=== PATIENT | female | born 1975 | race Hispanic/Latino ===

== ENCOUNTER 2023-12-10 12:18 | Emergency (ER) | payer SELFPAY ==
[2023-12-10 12:24] VITALS: BP 114/66
--- NOTE | 2023-12-10 14:32 | ED.GENMED ---
History of Present Illness
<Karlos Ceballos Jr., PA-C - Last Filed: 12/10/23 15:11>
General
Chief Complaint: DVT/Possible Blood Clot
Source: patient
Exam Limitations: none
Time Seen by Provider: 12/10/23 12:37
Nursing documentation reviewed up to this point in time: agreed with
Travel History
Have you had any contact with someone who has COVID-19?: No
Do you have any symptoms of coronavirus? Fever > 100 degrees, chills, cough, shortness of breath, sore throat, loss of taste or smell, muscle aches, or headache?: No
History of Present Illness
History of Present Illness:
48-year-old female with past medical history of psoriasis and anxiety presenting to the emergency department today with concerns of 1 week of worsening right lower extremity swelling from the right knee and distal. Denies similar symptoms in the
past. Denies any chest pain shortness of breath or history of blood clots. Denies any recent trauma surgery immobilization.
Past History
<Karlos Ceballos Jr., PA-C - Last Filed: 12/10/23 15:11>
Past History
ED Past Medical History: Psychiatric (anxiety) and Other (psoriasis)
ED Past Surgical History: None
Social History
Tobacco: Smoker
Living: with family
Family History
Family History: CAD
Review of Systems
<Karlos Ceballos Jr., PA-C - Last Filed: 12/10/23 15:11>
Review of Systems
Allergies reviewed?: Yes
All Other Systems: ROS reviewed and negative except as documented in HPI and ROS
Phy Exam
<Karlos Ceballos Jr., PA-C - Last Filed: 12/10/23 15:11>
Physical Exam
Physical Exam:
GENERAL: Alert , in no apparent distress
EYE: pupils equal and reactive
NECK: Supple, no significant adenopathy.
ENT: o/p clr, mmm.
CARDIAC: Regular rate and rhythm .
LUNGS: Clear breath sounds bilaterally, no acute respiratory distress, no wheezes/rales/rhonchi
ABDOMEN: Soft, without focal tenderness, no r/g, no cvat
NEUROLOGICAL: Alert and oriented, no focal neuro deficits
SKIN: Warm and dry, skin intact.
MUSCULOSKELETAL: +2 edema to the right lower extremity from the knee distal no significant swelling to the left leg normal distal pulses, well perfused.
PSYCH: Normal and appropriate interaction.
Course
<Karlos Ceballos Jr., PA-C - Last Filed: 12/10/23 15:11>
Orders/Labs/Results
Orders:
Orders
12/10/23 12:27
Periph Venous Lwr Ext Rt US [US Periph Venous LOWER Ext RT] Urgent
Comment:
Reason For Exam: pain and swelling 1 week
Vital Signs
Initial and Last Documented VS:
Initial Vital Signs
Temp Pulse Resp BP Pulse Ox
98.2 F 87 20 114/66 100
12/10/23 12:24 12/10/23 12:24 12/10/23 12:24 12/10/23 12:24 12/10/23 12:24
Last Documented Vital Signs
Temp Pulse Resp BP Pulse Ox
98.2 F 87 20 114/66 100
12/10/23 12:24 12/10/23 12:24 12/10/23 12:24 12/10/23 12:24 12/10/23 12:24
<Regla Joe MD - Last Filed: 12/10/23 15:06>
Orders/Labs/Results
Orders:
Orders
12/10/23 12:27
Periph Venous Lwr Ext Rt US [US Periph Venous LOWER Ext RT] Urgent
Comment:
Reason For Exam: pain and swelling 1 week
Vital Signs
Initial and Last Documented VS:
Initial Vital Signs
Temp Pulse Resp BP Pulse Ox
98.2 F 87 20 114/66 100
12/10/23 12:24 12/10/23 12:24 12/10/23 12:24 12/10/23 12:24 12/10/23 12:24
Last Documented Vital Signs
Temp Pulse Resp BP Pulse Ox
98.2 F 87 20 114/66 100
12/10/23 12:24 12/10/23 12:24 12/10/23 12:24 12/10/23 12:24 12/10/23 12:24
<Karlos Ceballos Jr., PA-C - Last Filed: 12/10/23 15:11>
MDM/Problems Addressed
MDM/Problems Addressed:
48-year-old female presenting to the emergency department today with concerns of swelling to the right lower extremity distal to the right knee over the past week gradually worsening no chest pain shortness of breath no history of blood clots no
recent trauma surgery immobilization. Ultrasound showing evidence of Morales's cyst as well as reactive lymphadenopathy this could be explaining patient's symptoms. Lymphadenopathy likely secondary to patient's psoriasis no evidence of UTI.
Otherwise given information for orthopedic follow-up for the Morales's cyst. Otherwise stable for discharge advised for close outpatient follow-up return precautions given.
<Karlos Ceballos Jr., PA-C - Last Filed: 12/10/23 15:11>
*Critical Care Note
Total Time (30-74mins, 75-104mins- exclusive of procedures): Not Applicable
ED Attending Note
<Karlos Ceballos Jr., PA-C - Last Filed: 12/10/23 15:11>
-
Portions of this chart may have been created with voice recognition software.� Occasional wrong word or��sound alike� substitutions may have occurred due to the inherent limitations of voice recognition software.
<Regla Joe MD - Last Filed: 12/10/23 15:06>
ED Attending Note
Patient seen and examined by attending physician: Yes
I performed the substantive portion of visit, reviewed & personally made and approve the management plan that is documented in note by myself or JESUS.: Yes
ED Attending Note:
Patient appears nontoxic and well. Right lower extremity has 1+ pitting edema. Ultrasound shows no sign of DVT. Strong pulses in bilateral lower extremities. Skin changes related to psoriasis noted of right lower extremity which patient reports
is chronic and not concerning to her. There is no sign of an obvious cellulitis of her right lower extremity. Ultrasound shows Morales's cyst. Patient will follow-up with orthopedic doctor given that she is having measurable edema and discomfort in
her right lower leg.
Discharge Plan
Departure
Patient Disposition: Home (Routine Discharge)
Date of Disposition: 12/10/23
Time of Disposition: 15:02
Patient with high blood pressure during this ER visit?: No
Condition: Good
Covid-19: Not Applicable
Discharge Problem:
Morales cyst
Instructions: Morales's Cyst (DC)
Prescriptions:
No Action
albuterol sulfate 1 PUFF HFA aerosol inhaler
2 puff inhalation QIDPRN PRN (Reason: SOB) Qty: 1 0RF
Referrals:
NONE,* [Family Provider] -
Lenin Barrios MD [Active] - Follow up in 5-7 days
Activity Restrictions/Additional Instructions:
You came to the emergency department today with concerns of swelling to your right leg. Here you an ultrasound without signs of DVT. You are found to have a Morales's cyst which may be causing a portion of your symptoms. Please follow-up closely
with orthopedics. Please rest elevate and use compression stocking to help with swelling of the right leg. You also need to follow-up with orthopedics for ongoing symptoms.
Interventions
Interventions:
*Risk Screen - Suicide Last Done: 12/10/23 12:54
*General Assessment Last Done: 12/10/23 12:54
*Neglect/Abuse Screening Last Done: 12/10/23 12:54
ED- Cardiac Assessment Last Done: 12/10/23 12:54
ED- Pulmonary Assessment Last Done: 12/10/23 12:54
ED-Peripheral Vascular Assessment Last Done: 12/10/23 12:54
ED-Skin Assessment Last Done: 12/10/23 12:54
Discharge Date and Time
Print Language: [id number]
== END 2023-12-10 15:39 | disposition home or self-care (01) ==
LOC: EMR 12:18
PROVIDERS: EMERGENCY PHYSICIAN Emergency Medicine
DX: M71.21 Synovial cyst of popliteal space [Baker], right knee (principal); L40.9 Psoriasis, unspecified; F41.9 Anxiety disorder, unspecified; F17.200 Nicotine dependence, unspecified, uncomplicated; Z82.49 Family history of ischemic heart disease and other diseases of the circulatory system
CPT/HCPCS: 99284; 93971